=== PATIENT | female | born 1980 | race Caucasian/White ===

== ENCOUNTER 2025-01-26 11:31 | Emergency (ER) | payer MEDICAID, OTHER ==
[~2025-01-26] VITALS: Ht 160 cm; Wt 61.9 kg
[2025-01-26] MEDS ORDERED: TRAZ150T80 PO (12:36)
[2025-01-26] MEDS ORDERED: BACL10TA PO (12:36)
[2025-01-26] MEDS ORDERED: GABA-1181 PO ×2 (12:36)
[2025-01-26] MEDS ORDERED: HYDR50CA7 PO (12:36)
[2025-01-26] MEDS ORDERED: BICT1TAB PO (12:36)
[2025-01-26] MEDS ORDERED: BUPR1TAB45 SL (12:36)
[2025-01-26] MEDS ORDERED: OMEP-148 PO (12:36)
[2025-01-26] MEDS ORDERED: ACET-3385 PO (12:36)
[2025-01-26] MEDS ORDERED: BUPR1TAB46 SL (12:36)
[2025-01-26 12:39] VITALS: TEMP 97.9
[2025-01-26 14:52] LABS: PLATELET COUNT (AUTO) 221 K/uL (150-450); RED BLOOD CELL COUNT(AUTO) 4.36 MIL/uL (4.00-5.20); RED CELL DISTRIBUTION WIDTH 15.9 % (11.5-14.5); WHITE BLOOD COUNT (AUTO) 4.8 K/uL (4.5-11.0)
[2025-01-26 14:54] LABS: CALCIUM, TOTAL 9.3 mg/dL (8.8-10.5); CREATININE 0.78 mg/dL (0.60-1.30); GLOMERULAR FILTR. RATE CALC > 60 mL/min (>60); GLUCOSE,RANDOM 87 mg/dL (70-110); SODIUM SERUM 139 mmol/L (136-145); UREA NITROGEN, BLOOD 15 mg/dL (7-18)
[2025-01-26] MEDS: GABAPENTIN 300 MG CAPSULE PO ONE (16:31)
[2025-01-26 17:30] VITALS: BP 131/71; PULSE 66; RESP 15; O2SAT 97
== END 2025-01-26 17:54 ==
LOC: EMS 11:31
DX: R22.2 Localized swelling, mass and lump, trunk (principal); Z79.899 Other long term (current) drug therapy; Z98.890 Other specified postprocedural states
CPT/HCPCS: 71111; 71250; 80048; 84703; 85025; 99284